=== PATIENT | female | born 1985 | race Caucasian/White ===

== ENCOUNTER → 2021-01-04 | Outpatient (CLI) | payer BC ==
[~2021-01-04] MED LIST: EPA FISH OIL1000 MG PO; IBU600 MG PO; MOTRIN 600600 MG/TAB PO; MULTIPLE VITAMI1 CAP PO; PERCOCET 325 MG1 TA2 PO; PREDNISONE1 MG PO; PRENATAL1 TA7 PO; SYNTHROID0.05 MG/TA PO
== END ==
LOC: ZCOL.LAB 10:28
DX: Z20.822 Contact with and (suspected) exposure to COVID-19 (principal)

== ENCOUNTER 2021-01-09 14:35 | Inpatient (IN) | payer BC ==
[~2021-01-09] VITALS: Ht 165.1 cm; Wt 93.6 kg
[2021-01-09] VITALS (18 sets, daily range): BP systolic 84–133; BP diastolic 51–85; PULSE 47–68; TEMP 97.2–98.2
[~2021-01-09 14:35] MED LIST changes: -IBU600 MG PO
--- NOTE | 2021-01-09 18:10 | NUR ---
1809: PT AMBULATORY TO UNIT, SPOUSE ALONGSIDE, FOR TOLAC. ORIENTED TO LABOR ROOM AND POC. PLACED ON EFM/TOCO. CONTRACTIONS APPROX 5-7 MINUTES APART WITH PALPATION. CATEGORY 1 STRIP NOTED AT THIS TIME. REPORTS "RANDOM" CONTRACTIONS THROUGHOUT THE DAY BUT NOTHING SEVERE, DENIES LEAKING OF FLUID AND REPORTS POSITIVE MOVEMENT. CONSENTS SIGNED. PT DENIES FURTHER QUESTIONS OR CONCERNS REGARDING IOL POC. 1899: INT TO LEFT WRIST, LABS PENDING, LR BEGINS INFUSING. 1910: AT BEDSIDE, DISCUSSES RISK OF TOLAC. ALL CONSETNS SIGNED. SVE 4100/-2 PER PHYSICIAN. AROM @ 1910 WITH CLEAR FLUID. 1917: PITOCIN STARTED PER PROTOCOL AT 2MU.
--- NOTE | 2021-01-09 20:28 | NUR ---
2027: PT REQUESTING EPIDURAL, LAINE JIMÉNEZ NOTIFIED 2034: LAINE JIMÉNEZ AT BEDSIDE, PT ASSISTED TO SITTING POSITION ON EDGE OF BED, INSTRUCTED ON EPIDURAL PLACEMENT AND EDUCATED ON RISKS, AGREEABLE TO PROCEDURE. DIFFICULTY TRACING EFM/TOCO DUE TO MATERNAL POSITIONING THROUGHOUT THIS ENCOUNTER. CONTRACTION PALPATED Q2-3 MIN. W/ INTERMITTENT CATEGORY 1 TRACING. 2041: SINGLE SHOT @ 2041 PER LAINE JIMÉNEZ, PT TOLERATED PROCEDURE WELL, VITAL SIGNS STABLE THROUGHOUT. 2104: PT REPORTS SIGNIFICANT PAIN RELIEF, WELL NUMBNESS IN BLE. STRONG PLACED PER PROTOCOL. SVE 5-6/90/-2 AT THIS TIME BY THIS RN. WILL CONTINUE WITH CURRENT PLAN OF CARE FOR TOLAC/IOL.
[2021-01-10] VITALS (31 sets, daily range): BP systolic 85–133; BP diastolic 43–92; PULSE 49–72; TEMP 97.3–98.4
[2021-01-10 01:47] LABS: BASO % 0.2 % (0.0-2.0); EOS # 0.1 (0.0-0.7); EOS % 0.6 % (0-4.0); GRAN # 10.3 (1.4-6.5); GRAN % 83.6 % (42.2-75.2); HEMATOCRIT 40.9 % (37.0-47.0); HEMOGLOBIN 13.1 g/dl (12.5-16.0); LYMPH # 1.3 (1.2-3.4); LYMPH % 10.9 % (20.0-51.0); MEAN CELL VOLUME 92 fl (80.0-100.0); MEAN CORPUSCULAR HEMOGLOBIN 30 pg (27.0-31.0); MEAN CORPUSCULAR HGB CONC 32 g/dl (33.0-37.0); MEAN PLATELET VOLUME 11.2 fl (7.4-10.4); MONO # 0.5 (0.1-0.6); MONO % 3.9 % (1.7-9.3); PLATELET COUNT 161 K/mm3 (130-400); RED BLOOD COUNT 4.44 M/mm3 (4.10-5.30); REDCELL DISTRIBUTION WIDTH-CV 13.2 % (11.5-14.5)
--- NOTE | 2021-01-10 01:58 | NUR ---
AT BEDSIDE, SVE 9-/100/0, VERBAL ORDERS TO RECHECK IN 30 MINUTES AND POTENTIALLY BEGIN TO PUSH
--- NOTE | 2021-01-10 02:51 | NUR ---
AT BEDSIDE, SVE 9/ANTERIOR LIP W/ SWOLLEN CERVIX, EDUCATING PT ON NEED FOR , PT AGREEABLE TO POC, WILL BEGIN CSECTIN PREP PER PROTOCOL.
--- NOTE | 2021-01-10 03:20 | NUR ---
STRONG DRAINING CLEAR YELLOW FLUID. MONS PUBIS HAIR CLIPPED, ABDOMEN CLEANSED PER PROTOCOL. PT PREPPED AND MOVED TO OR SUITE VIA BED PER PROTOCOL. EPIDURAL REMAINS IN PLACE AND FUNCTIONING APPROPRIATELY. 0335: DELIVERY OF HEAD BY . 0335: DELIVERY OF VIABLE FEMALE BY . CARE ASSUMED BY BENJAMIN Richey RN. 0425: PT TO PACU. STABLE CONDITION. LOCHIA WNL. FUNDUS FIRM AT UMBILICUS. PT ALERT BUT LETHARGIC. STRONG REMAINS DRAINING CLEAR YELLOW URINE. PT DENIES PAIN. REPORTS MINIMAL NAUSEA. WILL CONTINUE WITH POST SURGICAL VITAL SIGNS AND ASSESSMENTS PER PROTOCOL.
--- NOTE | 2021-01-10 05:18 | NUR ---
NOTIFIED LAINE JIMÉNEZ OF PT SHAKING VIGOROUSLY, REQUESTING MEDICATION TO ASSIST WITH SHAKING, UNABLE TO OBTAIN ACCURATE VITAL SIGNS DUE TO SHAKES. VERBAL ORDERS TO ADMINISTER IV DEMEROL 50MG AT THIS TIME.
[2021-01-10] MEDS ORDERED: IBU600 MG PO (08:23)
[2021-01-10] MEDS ORDERED: PERCOCET 325 MG1 TA2 PO (08:24)
--- NOTE | 2021-01-10 10:47 | NUR ---
Initial visit; Parents thanked [employer] Specialist for offering congratulations and God's blessings for the of their daughter. Tree Specialist thanked Family for choosing [facility].
--- NOTE | 2021-01-10 18:45 | NUR ---
Report recieved. Resting in bed at this time. Updated whiteboard and reviewed POC.
[2021-01-11 07:38] VITALS: BP 97/58; PULSE 59; TEMP 97.9
[2021-01-11 12:31] VITALS: BP 104/57; PULSE 57; TEMP 98.5
[2021-01-11 16:05] VITALS: BP 105/60; PULSE 57; TEMP 97.4
[2021-01-11 19:00] VITALS: BP 115/67; PULSE 72; TEMP 98.4
[2021-01-12 08:20] VITALS: BP 118/53; PULSE 63; TEMP 97.9
== END 2021-01-12 12:05 | disposition home or self-care (01) | DRG 788 ==
LOC: OB 15:11 → LDR 17:55 → OB 17:55
PROVIDERS: ADMIT Obstetrics & Gynecology
PROC: 10D00Z1 Extraction of Products of Conception, Low, Open Approach (ICD-10-PCS; principal; 2021-01-09)
DX: O48.0 Post-term pregnancy (principal); O34.211 Maternal care for low transverse scar from previous cesarean delivery; O99.284 Endocrine, nutritional and metabolic diseases complicating childbirth; E03.9 Hypothyroidism, unspecified; O62.1 Secondary uterine inertia; Z3A.40 40 weeks gestation of pregnancy; Z37.0 Single live birth
CPT/HCPCS: J2175; J2590; J7120